=== PATIENT | female | born 1990 | race Caucasian/White ===

== ENCOUNTER 2019-01-18 09:26 | Outpatient (CLI) | payer MEDICAID ==
[~2019-01-18 09:26] MED LIST: Iopamidol 300 61% 100 ML VIAL FS ONE
--- NOTE | 2019-01-18 12:05 | CT ---
CT CHEST WITH IV CONTRAST: CT ABDOMEN WITH IV CONTRAST: CT PELVIS WITH IV CONTRAST: HISTORY: Positive Pap smear in November 2018. The patient is scheduled for a hysterectomy next week. FINDINGS: No pulmonary nodules/masses, focal areas of consolidation, pneumothoraces, or pleural or pericardial effusions are seen. No mediastinal hilar or axillary mass or lymphadenopathy is seen. The liver, sp kristian, pancreas, adrenal glands, and kidneys are normal. No calcified gallstones are seen. No free a ir, free fluid, or lymphadenopathy is noted in the abdomen or pelvis. Uterus and ovaries are present . The small bowel loops are not abnormally dilated. No osteolytic or osteoblastic lesions are prese nt. IMPRESSION: No significant abnormalities identified. POS: OFF
== END 2019-01-18 09:27 | disposition home or self-care (01) ==
LOC: SCSCT 09:26
PROVIDERS: ATTEND Obstetrics & Gynecology Gynecologic Oncology
DX: C53.1 Malignant neoplasm of exocervix (principal)
CPT/HCPCS: 71260; 74177; Q9967